=== PATIENT | female | born 1950 | race Two or more races ===

== ENCOUNTER 2020-07-29 05:45 | Day surgery (SDC) | payer OTHER ==
[~2020-07-29 05:45] MED LIST: TOPROL XL50 M1 PO
[2020-07-29] MEDS ORDERED: ULTRACET PO (08:07)
[2020-07-29] MEDS ORDERED: ASA325 M1 PO (08:07)
[2020-07-29] MEDS ORDERED: DUI500 PO (08:07)
== END 2020-07-29 11:20 | disposition home or self-care (01) ==
LOC: CIR.AMB 05:45
PROVIDERS: ATTEND Orthopaedic Surgery
DX: S83.231A Complex tear of medial meniscus, current injury, right knee, initial encounter (principal); S83.281A Other tear of lateral meniscus, current injury, right knee, initial encounter; M94.261 Chondromalacia, right knee; M23.41 Loose body in knee, right knee; Z20.822 Contact with and (suspected) exposure to COVID-19

== ENCOUNTER 2022-03-09 09:45 | Inpatient (IN) | payer OTHER ==
[~2022-03-09] VITALS: Ht 152.4 cm; Wt 73.9 kg
[~2022-03-09 09:45] MED LIST changes: +ASA325 M1 PO; +DUI500 PO; +ULTRACET PO
[2022-03-09] MEDS ORDERED: CREST PO (12:27)
[2022-03-14] MEDS ORDERED: ROSUVASTATIN CA20 MG (08:00)
[2022-03-14] MEDS ORDERED: LOSARTAN POTASS25 MG (08:01)
[2022-03-14] MEDS ORDERED: PANTOPRAZOLE SO40 MG (08:01)
[2022-03-14] MEDS ORDERED: VITAMIN D350 MCG (08:01)
== END 2022-03-17 14:06 | disposition home or self-care (01) | DRG 330 ==
LOC: SURG 03-14 05:35 → O/R 03-14 05:35 → SURH 03-14 09:45 → SURG 03-14 14:54
PROVIDERS: ADMIT Colon & Rectal Surgery; ATTEND Colon & Rectal Surgery
PROC: 0DBP4ZZ Excision of Rectum, Percutaneous Endoscopic Approach (ICD-10-PCS; 2022-03-14)
PROC: 0WQF4ZZ Repair Abdominal Wall, Percutaneous Endoscopic Approach (ICD-10-PCS; 2022-03-14)
PROC: 0DQE4ZZ Repair Large Intestine, Percutaneous Endoscopic Approach (ICD-10-PCS; 2022-03-14)
PROC: 0DJD8ZZ Inspection of Lower Intestinal Tract, Via Natural or Artificial Opening Endoscopic (ICD-10-PCS; 2022-03-14)
PROC: 0DTN4ZZ Resection of Sigmoid Colon, Percutaneous Endoscopic Approach (ICD-10-PCS; principal; 2022-03-14 10:45)
DX: K57.20 Diverticulitis of large intestine with perforation and abscess without bleeding (principal); K92.1 Melena; K43.2 Incisional hernia without obstruction or gangrene; K66.0 Peritoneal adhesions (postprocedural) (postinfection); Z43.3 Encounter for attention to colostomy